=== PATIENT | male | born 1955 | race Caucasian/White ===

== ENCOUNTER 2016-07-25 18:33 | Emergency (ER) | payer OTHER ==
[~2016-07-25] VITALS: Ht 170.2 cm; Wt 100.0 kg
[~2016-07-25 18:33] MED LIST: ADVAIR HFA120 INHALA IH; ALEVE220 MG PO; ASPIR-LOW81 MG PO; AUGMENTIN875 MG PO; AZOR 10/40 M1 TABLET PO; AZOR 5/20 MG1 TABLET PO; CELEXA40 MG PO; CHOLESTEROL MED PO; CIPROFLOXACIN500 M1 PO; CLINDAMYCIN HC300 MG PO; CYMBALTA60 MG PO; DAILY VALUE1 EACH PO; DIABETES MEDICATION PO; DICLOXACILLIN500 MG PO; FLEXERIL10 MG PO; FUROSEMIDE40 MG PO; HYDROCHLOROTH12.5 M3 PO; HYDROCODON-ACE1 EAC7 PO; IBUPROFEN800 MG PO; INVOKANA300 MG PO; JANUMET 50/11 TABLET PO; K-DUR10 MEQ PO; KEFLEX500 MG PO; KENALOG,ARISTOC15 G2 TP; LANTUS 3 M100 UNITS1 SC; METOPROLOL TART25 MG PO; MUCINEX600 MG PO; MULTI-VITAMIN1 EAC4 PO; NAPROSYN500 MG PO; NEXIUM40 MG PO; PREDNISONE20 MG PO; PREDNISONE5 MG PO; PROTONIX40 MG PO; SIMVASTATIN20 MG PO; SPIRIVA RESPIMAT4 GM IH; VALTREX1000 MG PO; WELCHOL625 MG PO; [UNRECOGNIZED DRUG - REMARK] PO
[2016-07-25 19:12] LABS: HEMATOCRIT 37.4 % (38.0-50.0); MCH 31.5 PG (29.0-34.0); MCHC 36.4 G/DL (30.0-36.0); MCV 86.6 FL (86-99); MEAN PLAT.VOLUME 11.2 uM^3 (9.0-12.4); PLATELET COUNT 170 K/uL (156-360); RBC DIS.WIDTH-SD 40.3 % (39-53); RED BLOOD COUNT 4.32 M/uL (4.00-5.50); WHITE BLOOD COUNT 6.5 K/uL (4.1-10.2)
[2016-07-25 19:16] LABS: CHLORIDE 106 mEq/L (99-109); POTASSIUM 3.8 mEq/L (3.7-5.4); SODIUM 140 mEq/L (136-147)
[2016-07-25 19:17] LABS: GLUCOSE 166 mg/dL (70-99)
[2016-07-25 19:19] LABS: ANION GAP 11 MEQ/L (2-14)
[2016-07-25 19:21] LABS: GFR ESTIMATE (CALCULATED) > 59 mL/min/
[2016-07-25 19:22] LABS: UREA NITROGEN (BUN) 11 mg/dL (9-23)
[2016-07-25 20:33] LABS: TROP-I INTERPRETATION NEGATIVE; TROPONIN-I < 0.01 ng/mL (0.0-0.30)
[2016-07-25 21:22] LABS: ADD MIUA? NO; BILIRUBIN NEGATIVE; BLOOD NEGATIVE; COLOR YELLOW ((YELLOW)); GLUCOSE (STRIP) NEGATIVE; KETONES NEGATIVE; LEUKOCYTES NEGATIVE; NITRITE NEGATIVE; PH, URINE 6.5 (5-8); PROTEIN (STRIP) NEGATIVE; SPECIFIC GRAVITY 1.015 (1.000-1.030); UCUL ADDED? NO; UROBILINOGEN 0.2 MG/DL (0.2-1.0)
[2016-07-25 22:38] LABS: BASE EXCESS 2.6 mEq/L (-3 to +3); CARBOXY HGB 1.8 % (0-5); METHEMOGLOBIN 0.8 % (0-1.5); pH 7.43 (7.35-7.45)
[2016-07-25 22:40] LABS: BICARBONATE 27.2 mEq/L (22-26); COMMENTS - BLOOD GASES A+C+; FI02 21 %; PCO2 41 mm Hg (35-45); PO2 74 mm Hg (80-100); SITE RR
[2016-07-25] MEDS ORDERED: MECLIZINE HCL25 MG PO (23:03)
[2016-07-25 23:30] VITALS: BP 152/93
== END 2016-07-25 23:59 | disposition home or self-care (01) ==
LOC: EME 18:33
PROVIDERS: Emergency Medicine
DX: R42 Dizziness and giddiness (principal); J44.9 Chronic obstructive pulmonary disease, unspecified; I10 Essential (primary) hypertension; K21.9 Gastro-esophageal reflux disease without esophagitis; Z87.891 Personal history of nicotine dependence
CPT/HCPCS: 36600; 70450; 71020; 80048; 81003; 82803; 84484; 85027; 93005; 99281; 99284

== ENCOUNTER 2016-10-17 14:33 | Emergency (ER) | payer OTHER ==
[~2016-10-17] VITALS: Ht 175.3 cm; Wt 205.0 kg
[~2016-10-17 14:33] MED LIST changes: +MECLIZINE HCL25 MG PO
[2016-10-17] MEDS ORDERED: AMLODIPINE-OLM1 EAC3 PO (17:17)
[2016-10-17 17:26] VITALS: BP 166/99
== END 2016-10-17 17:31 | disposition home or self-care (01) ==
LOC: EME 14:33
DX: R51 Headache (principal); I10 Essential (primary) hypertension; T46.5X6A Underdosing of other antihypertensive drugs, initial encounter; Z91.128 Patient's intentional underdosing of medication regimen for other reason; E78.5 Hyperlipidemia, unspecified; K21.9 Gastro-esophageal reflux disease without esophagitis
CPT/HCPCS: 93005; 99281; 99285; J1200; J2765; J7030